=== PATIENT | female | born 1965 | race Caucasian/White ===

== ENCOUNTER 2016-11-04 08:05 | Day surgery (SDC) | payer BC ==
[~2016-11-04 08:05] MED LIST: Lactated Ringers 1,000 ML IV SCH; Lidocaine 1%/Sod Bicarbonate in NS 8.4% 1 ML Syringe IV PRN; Sodium Chloride 0.9% 10 ML Syringe FLUSH PRN
[2016-11-04] MEDS ORDERED: Midazolam 1 MG/ML 2 ML SDV ONE (08:12)
[2016-11-04] MEDS ORDERED: Propofol 200 MG/20 ML SDV ONE ×4 (08:12→11:05)
[2016-11-04] MEDS ORDERED: fentaNYL 100 MCG/2 ML SDV ONE (08:12)
[2016-11-04] MEDS ORDERED: Lidocaine 1% 2 ML ONE (08:15)
--- NOTE | 2016-11-04 08:43 | PCM.PREANE ---
Preanesthetic Assessment - Anesthesia/Transfusion/Family Hx Anesthesia History: Prior Anesthesia Without Reaction Family History of Anesthesia Reaction: No Transfusion History: Prior Transfusion Without Reaction Additional History: NO history of difficult intubation - Review of Systems General: No Symptoms Pulmonary: No Symptoms Cardiovascular: No Symptoms Gastrointestinal: No symptoms Neurological: No Symptoms Other: Reports: None - Physical Assessment NPO Status Date: 11/04/16 NPO Status Time: 00:00 Pulse: 58 O2 Sat by Pulse Oximetry: 98 Respiratory Rate: 16 Blood Pressure: 117/81 Temperature: 98.1 C Height: 1.65 m ASA Class: 2 Mental Status: Alert & Oriented x3 Airway Class: Mallampati = 1 Dentition: Reports: Normal Dentition Thyro-Mental Finger Breadths: 3 Mouth Opening Finger Breadths: 5 ROM/Head Extension: Full Lungs: Clear to auscultation, Normal respiratory effort Cardiovascular: Regular Rate, Regular Rhythm - Lab Values: Laboratory Last Values WBC 5.62 K/mm3 (3.98-10.04) 10/26/16 12:52 RBC 4.40 M/mm3 (3.98-5.22) 10/26/16 12:52 Hgb 13.5 gm/L (11.2-15.7) 10/26/16 12:52 Hct 39.2 % (34.1-44.9) 10/26/16 12:52 MCV 89.1 fl (79.4-94.8) 10/26/16 12:52 MCH 30.7 pg (25.6-32.2) 10/26/16 12:52 MCHC 34.4 g/dl (32.2-35.5) 10/26/16 12:52 RDW Std Deviation 41.9 fL (36.4-46.3) 10/26/16 12:52 Plt Count 252 K/mm3 (182-369) 10/26/16 12:52 MPV 10.1 fl (9.4-12.3) 10/26/16 12:52 Neut % (Auto) 58.2 % (34.0-71.1) 10/26/16 12:52 Lymph % (Auto) 29.5 % (19.3-51.7) 10/26/16 12:52 Centre % (Auto) 8.2 % (4.7-12.5) 10/26/16 12:52 Eos % (Auto) 3.0 (0.7-5.8) 10/26/16 12:52 Baso % (Auto) 1.1 % (0.1-1.2) 10/26/16 12:52 Neut # 3.27 K/mm3 (1.56-6.13) 10/26/16 12:52 Lymph # 1.66 K/mm3 (1.18-3.74) 10/26/16 12:52 Centre # 0.46 K/mm3 (0.24-0.36) H 10/26/16 12:52 Eos # 0.17 K/mm3 (0.04-0.36) 10/26/16 12:52 Baso # 0.06 K/mm3 (0.01-0.08) 10/26/16 12:52 Sodium 136 mEq/L (136-145) 10/26/16 12:52 Potassium 4.0 mEq/L (3.5-5.1) 10/26/16 12:52 Chloride 101 mEq/L (98-107) 10/26/16 12:52 Carbon Dioxide 32 mEq/L (21-32) 10/26/16 12:52 Anion Gap 7.0 (5-15) 10/26/16 12:52 BUN 13 mg/dL (7-18) 10/26/16 12:52 Creatinine 0.9 mg/dL (0.55-1.02) 10/26/16 12:52 Est Cr Clr Drug Dosing TNP 10/26/16 12:52 Estimated GFR (MDRD) > 60 mL/min (>60) 10/26/16 12:52 BUN/Creatinine Ratio 14.4 (14-18) 10/26/16 12:52 Glucose 98 mg/dL (74-106) 10/26/16 12:52 Calcium 8.9 mg/dL (8.5-10.1) 10/26/16 12:52 25-OH Vitamin D Total 36 ng/mL (>29) 10/26/16 12:52 MRSA (PCR) Negative 10/26/16 12:52 - Allergies Allergies/Adverse Reactions: Allergies Allergy/AdvReac Type Severity Reaction Status Date / Time No Known Allergies Allergy Verified 11/03/16 16:07 - Blood Blood Available: No - Anesthesia Plan Pre-Op Medication Ordered: None - Acknowledgements Anesthesia Type Planned: DARIUSZ Pt an Appropriate Candidate for the Planned Anesthesia: Yes Alternatives and Risks of Anesthesia Discussed w Pt/Guardian: Yes Pt/Guardian Understands and Agrees with Anesthesia Plan: Yes PreAnesthesia Questionnaire HEENT History: Reports: None Cardiovascular History: Reports: None Respiratory History: Reports: None FAMILY COURT JUSTICE History: Reports: Musculoskeletal History: Reports: None Neurological History: Reports: None Psychiatric History: Reports: None Endocrine/Metabolic History: Reports: None Hematologic History: Reports: None Immunologic History: Reports: None Oncologic (Cancer) History: Reports: Colon Dermatologic History: Reports: None - Past Surgical History Head Surgeries/Procedures: Reports: None GI Surgical History: Reports: Colonoscopy, Other (see below) Other GI Surgeries/Procedures: bowel resection Female Surgical History: Reports: section - SUBSTANCE USE Smoking Status *Q: Never Smoker Recreational Drug Use History: No - HOME MEDS Home Medications: Home Meds Ca Carbonate/Vitamin D3/Vit K [Calcium + D Soft Chewable Tab] 1 tab PO DAILY [History] Calcium Carbonate [Calcium] 600 mg PO DAILY 11/03/16 [History] Cholecalciferol (Vitamin D3) [Vitamin D] 5,000 unit PO Q48H 11/03/16 [History] Fish Oil/Crawford-3 Fatty Acids [Fish Oil 1,000 MG] 1 cap PO DAILY 11/03/16 [ History] Gluc 2KCl/Chondr/Arnie Hy/Hy Ac [Glucosamine & Chondroitin Cap] 1 cap PO DAILY [History] Multivitamin [Multivitamins] 1 tab PO DAILY 11/03/16 [History] Vitamin B Complex 1 cap PO DAILY 11/03/16 [History] Hydrocodone/Acetaminophen [[place] 5-325 Tablet] 1 - 2 each PO Q6H PRN #40 tablet 11/04/16 [Rx] - CURRENT (IN HOUSE) MEDS Current Meds: Current Medications Lactated Ringer's (Ringers, Lactated) 1,000 mls @ 125 mls/hr IV ASDIRECTED REE Stop: 11/04/16 23:00 Lidocaine/Sodium Bicarbonate (Buffered Lidocaine 1% In Ns 8.4%) 0.25 ml IV ONETIME PRN PRN Reason: Prior to IV Start Stop: 11/04/16 18:00 Sodium Chloride (Saline Flush) 10 ml FLUSH ASDIRECTED PRN PRN Reason: Keep Vein Open Stop: 11/04/16 18:00 Discontinued Medications Fentanyl (Sublimaze) Confirm Administered Dose 100 mcg .ROUTE .STK-MED ONE Stop: 11/04/16 08:13 Lidocaine HCl (Xylocaine-Mpf 1%) Confirm Administered Dose 2 mls @ as directed .ROUTE .STK-MED ONE Stop: 11/04/16 08:16 Midazolam HCl (Versed 1 Mg/Ml) Confirm Administered Dose 2 mg .ROUTE .STK-MED ONE Stop: 11/04/16 08:13 Propofol (Diprivan 20 Ml) Confirm Administered Dose 200 mg .ROUTE .STK-MED ONE Stop: 11/04/16 08:13 Preanesthetic Assessment - LAB Values: Laboratory Last Values WBC 5.62 K/mm3 (3.98-10.04) 10/26/16 12:52 RBC 4.40 M/mm3 (3.98-5.22) 10/26/16 12:52 Hgb 13.5 gm/L (11.2-15.7) 10/26/16 12:52 Hct 39.2 % (34.1-44.9) 10/26/16 12:52 MCV 89.1 fl (79.4-94.8) 10/26/16 12:52 MCH 30.7 pg (25.6-32.2) 10/26/16 12:52 MCHC 34.4 g/dl (32.2-35.5) 10/26/16 12:52 RDW Std Deviation 41.9 fL (36.4-46.3) 10/26/16 12:52 Plt Count 252 K/mm3 (182-369) 10/26/16 12:52 MPV 10.1 fl (9.4-12.3) 10/26/16 12:52 Neut % (Auto) 58.2 % (34.0-71.1) 10/26/16 12:52 Lymph % (Auto) 29.5 % (19.3-51.7) 10/26/16 12:52 Centre % (Auto) 8.2 % (4.7-12.5) 10/26/16 12:52 Eos % (Auto) 3.0 (0.7-5.8) 10/26/16 12:52 Baso % (Auto) 1.1 % (0.1-1.2) 10/26/16 12:52 Neut # 3.27 K/mm3 (1.56-6.13) 10/26/16 12:52 Lymph # 1.66 K/mm3 (1.18-3.74) 10/26/16 12:52 Centre # 0.46 K/mm3 (0.24-0.36) H 10/26/16 12:52 Eos # 0.17 K/mm3 (0.04-0.36) 10/26/16 12:52 Baso # 0.06 K/mm3 (0.01-0.08) 10/26/16 12:52 Sodium 136 mEq/L (136-145) 10/26/16 12:52 Potassium 4.0 mEq/L (3.5-5.1) 10/26/16 12:52 Chloride 101 mEq/L (98-107) 10/26/16 12:52 Carbon Dioxide 32 mEq/L (21-32) 10/26/16 12:52 Anion Gap 7.0 (5-15) 10/26/16 12:52 BUN 13 mg/dL (7-18) 10/26/16 12:52 Creatinine 0.9 mg/dL (0.55-1.02) 10/26/16 12:52 Est Cr Clr Drug Dosing TNP 10/26/16 12:52 Estimated GFR (MDRD) > 60 mL/min (>60) 10/26/16 12:52 BUN/Creatinine Ratio 14.4 (14-18) 10/26/16 12:52 Glucose 98 mg/dL (74-106) 10/26/16 12:52 Calcium 8.9 mg/dL (8.5-10.1) 10/26/16 12:52 25-OH Vitamin D Total 36 ng/mL (>29) 10/26/16 12:52 MRSA (PCR) Negative 10/26/16 12:52 - ALLERGIES Allergies/Adverse Reactions: Allergies Allergy/AdvReac Type Severity Reaction Status Date / Time No Known Allergies Allergy Verified 11/03/16 16:07
[2016-11-04] MEDS ORDERED: Bupivacaine 0.5% 30 ML SDV ONE (08:58)
[2016-11-04] MEDS ORDERED: Lidocaine 1% 30 ML SDV ONE (08:58)
[2016-11-04] MEDS ORDERED: ceFAZolin 1 GM Vial ONE (09:08)
[2016-11-04] MEDS ORDERED: Sodium Bicarbonate 8.4% 50 MEQ/50 ML SDV ONE (09:10)
[2016-11-04] MEDS ORDERED: Lidocaine 0.5% 50 ML SDV ONE (09:10)
[2016-11-04] MEDS ORDERED: Lactated Ringers 1,000 ML ONE (10:52)
[2016-11-04] MEDS ORDERED: diphenhydrAMINE 50 MG/ML SDV IVPUSH PRN (11:24)
[2016-11-04] MEDS ORDERED: fentaNYL 100 MCG/2 ML SDV IVPUSH PRN (11:24)
[2016-11-04] MEDS ORDERED: Ondansetron 4 MG/2 ML SDV IVPUSH PRN (11:24)
[2016-11-04] MEDS: Bupivacaine 0.25% 10 ML SDV ONE ×2 (11:25→16:55)
--- NOTE | 2016-11-04 11:36 | PCM48HPAN ---
Post Anesthesia Note - EVALUATION WITHIN 48HRS OF ANESTHETIC Vital Signs in Normal Range: Yes Patient Participated in Evaluation: Yes Respiratory Function Stable: Yes Airway Patent: Yes Cardiovascular Function Stable: Yes Hydration Status Stable: Yes Pain Control Satisfactory: Yes Nausea and Vomiting Control Satisfactory: Yes Mental Status Recovered: Yes
--- NOTE | 2016-11-04 11:57 | CR ---
Left wrist: Ten fluoroscopic spot views were obtained of the left wrist utilizing C-arm device. Study shows excision of the trapezium bone. Fixation device noted between the base of the first and second metacarpals. Fluoroscopy time given as 28.9 seconds. Impression: 1. Operative exam as described above. Diagnostic code #2
--- NOTE | 2016-11-04 11:59 | PCM.SN ---
- Free Text/Narrative Note: Patient was asked to collect a urine test. Patient denied being and denied a urine test pre-procedure.
[2016-11-04] MEDS ORDERED: Meperidine PF 50 MG/ML Syringe IVPUSH PRN (12:25)
[2016-11-04 12:55] VITALS: BP 119/76
[2016-11-04] MEDS ORDERED: Acetaminophen/HYDROcodone 325-5 MG Tab PO SCH (13:30)
--- NOTE | 2016-11-07 22:02 | PCM.OPNOTE ---
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
--- NOTE | 2016-11-07 23:05 | OR ---
DATE OF OPERATION: 11/04/2016 SURGEON: Shayne Martinez MD OPERATION PERFORMED: Left wrist trapeziectomy with TightRope fixation ligament reconstruction. PREOPERATIVE DIAGNOSIS: Left thumb basal joint arthrosis. POSTOPERATIVE DIAGNOSIS: Left thumb basal joint arthrosis. ANESTHESIA: Regional Desire block with local. ANESTHESIA PROVIDER: Gonzalo Alvarez. CERTIFIED HYPERBARIC TECHNICIAN: Carley Raymond PA-C. ESTIMATED BLOOD LOSS: Less than 10 mL. COMPLICATIONS: None. CONDITION: Stable. DESCRIPTION OF PROCEDURE: The patient was identified in the preop holding area. Proper site was marked and identified by the surgeon. The patient was taken back to the operating theater where after adequate anesthesia, the patient's left upper extremity was sterilely prepped and draped in the usual sterile fashion. OR time-out was performed. The patient received 2 g IV Ancef. At this time, the incision was centered over the trapezium, which was identified using C-arm fluoroscopy. Incision was made. Blunt dissection was taken down to the capsule. A capsulotomy was then performed and the trapezium was identified. A guide pin was then placed on the trapezium, which was used as a joystick and the trapezium was circumferentially removed and excised out. The C-arm fluoroscopy was utilized to make sure that all bony pieces of trapezium was removed and it was shown that all of it was removed at this time. At this time, adequate saline was irrigated through this defect with use of the Arthrex guidepin. The guidepin was placed from the base of the first metacarpal up into the center of the proximal shaft of the second metacarpal. Incision was made and centered over the second metacarpal shaft and the guidepin was placed through the cortex. The TightRope was then shuttled through with the guidepin and an Endobutton was then applied to the second metacarpal and this was tensioned properly. The patient had full opposition and was able to perform flat and had good fixation and position on C-arm fluoroscopy at this time. This was then tied down and tightened. The patient had adequate motion including being able to get a flat palm on the table at that time after this was tightened. Adequate saline was then irrigated through the wounds. 2-0 Vicryl was used for closure of the capsule, 3-0 Vicryl was used subcutaneously, and Monocryl was used for the skin. The patient was placed in a radial thumb spica splint and will follow up in clinic in 7 to 10 days' time. GAVINO /[id number]
== END 2016-11-04 12:41 | disposition home or self-care (01) ==
LOC: JD.SDS 08:05
PROVIDERS: ATTEND Orthopaedic Surgery
PROC: 0PBN0ZZ Excision of Left Carpal, Open Approach (ICD-10-PCS; principal; 2016-11-04)
PROC: 0RUT07Z Supplement Left Carpometacarpal Joint with Autologous Tissue Substitute, Open Approach (ICD-10-PCS; 2016-11-04)
DX: M19.042 Primary osteoarthritis, left hand (principal); Z85.038 Personal history of other malignant neoplasm of large intestine; Z90.49 Acquired absence of other specified parts of digestive tract; Z98.890 Other specified postprocedural states; Z79.899 Other long term (current) drug therapy
CPT/HCPCS: 25310; 25447; 36415; 76000; 80048; 82306; 85025; 87641; C1713; J0690; J2250; J3010; J7120; 01830; J2704